=== PATIENT | male | born 1980 | race Caucasian/White ===

== ENCOUNTER 2019-03-27 22:44 | Emergency (ER) | payer OTHER ==
[~2019-03-27] VITALS: Ht 188 cm; Wt 122.5 kg
[~2019-03-27 22:44] MED LIST: AUGMENTIN 875-1 EACH PO; NORCO 10-325 T1 EACH PO
--- NOTE | 2019-03-28 16:20 | EKG ---
[facility] [address] [facility] [place], [place] [address] Signed Normal sinus rhythm Normal ECG No previous ECGs available Confirmed by LAZARUS BUCK DO ([id number]) on 03/28/2019 4:19:58 PM Electronically Signed By: LAZARUS BUCK DO 03/28/19 1620 PATIENT NAME: JAVIER QUIJANO Electrocardiogram DATE OF : 84 PHYSICIAN: LAZARUS BUCK DO REPORT #: [id number] REPORT IS CONFIDENTIAL AND NOT TO BE RELEASED WITHOUT AUTHORIZATION
== END 2019-03-28 00:30 | disposition home or self-care (01) ==
LOC: ED 22:44
DX: R07.89 Other chest pain (principal)
CPT/HCPCS: 71045; 80053; 83735; 84484; 85025; 85379; 93005; 93010; 99285-25